=== PATIENT | female | born 1945 | race Caucasian/White ===

== ENCOUNTER → 2017-07-27 | Day surgery (SDC) | payer MEDICARE ==
[~2017-07-27] VITALS: Ht 162.6 cm; Wt 60.0 kg
[~2017-07-27] MED LIST: CHOL10008 PO; Ketamine 10 mg/mL 20 mL Inj ONE; Lactated Ringer's 1,000 ML IV ONE; Lactated Ringer's 1,000 ML IV SCH; MetoCLOpramide 5 mg/mL 2 mL Inj IVPUSH PRN; OMEP20CA11 PO; Ondansetron 2 mg/mL 2 mL Inj IVPUSH PRN; TRIA1CAP5 PO
--- NOTE | 2017-07-27 07:29 | PCM.HPANE ---
Patient Data Surgeon Admitting Provider: Attending Provider:Miguel Soto MD Primary Care Physician:Olive Olson MD Other Provider:[facility] Reason for Visit Colon Cancer Screening, Abdominal Pain Ht/WT & BMI Body Mass Index Allergies Coded Allergies: Morpholine Analogues (Verified Allergy, Unknown, 07/27/17) Past Anesthesia History Anesthesia History: Denies:: Abnormal Airway, Difficult Intubation Diabetes History Hx Diabetes?: No MRSA MRSA: No Medications Hypertension Medication: Yes Home Meds Incl Beta Maida: No Reported Medications Cholecalciferol (Vitamin D3) (Vitamin D3)1,000 Unit Tab.chew1,000 Unit PO DAILY 07/25/17 Triamterene/HCTZ 37.5-25 mg 1 Each Capsule1 Capsule PO DAILY Ref 0 07/25/17 Omeprazole 20 Mg Capsule.dr20 Mg PO DAILY Ref 0 07/25/17 History History of ENT Problems?: No HEENT History: Denies:: Abnormal Airway Cataracts Difficult Intubation Dysphagia Glaucoma Hearing Problem Sinus Problem TMJ Denture Type: None Teeth Condition: Within Normal Limits Hx of Heart Problems?: Yes Cardiovascular History: Positive for:: Hypertension Hx of Respiratory Problem?: No Respiratory History: Denies:: Asthma COPD Chest Surgery Cough Dyspnea Emphysema Hemoptysis Oxygen Administration Pneumonia Pulmonary Embolism Tuberculosis Use of C-PAP Machine Use of Inhalers / NEBS Hx Neurologic Problems?: No Neurological History: Denies:: Alzheimer's Disease CVA Dementia Dizziness Headaches Multiple Sclerosis Parkinson's Disease Peripheral Neuropathy Seizures TIA Hx of GI Problems?: Yes (abdominal pain) Gastrointestinal History: Denies:: Cirrhosis Diverticulitis Gall Bladder Disease Gastroesphageal Reflux Gastrointestinal Bleeding Heartburn Hepatitis Hiatal Hernia Liver Disease Rectal Bleeding Hx of Problems?: No HX of Peritoneal Dialysis: No Female Hx: Denies:: Currently Skin History: Denies:: History Skin Disorders? Pressure Ulcers Hx Musculoskeletal Problems?: No Hx of Psycho/Social Problems?: Yes Psycho Social History: Positive for:: Anxiety Hx Depression Hx Surgeries?: No Hx Any Other Health Problems?: No Stop/Bang Treated for Sleep Apnea?: No Do You Have a CPAP Machine?: No FRANSISCO Risk Assessment: Low Risk, <3 Yes Risk Assessment Category Category 1A: Patient has history of documented sleep apnea, and HAS NOT received any narcotic, sedative or anesthesia administration during this stay. Category 1B: Patient has history of documented sleep apnea, and HAS received any narcotic , sedative or anesthesia administration during this stay Category 2: Patient has SUSPECTED Obstructive Sleep Apnea, and HAS received any narcotic , sedative or anesthesia administration during this stay. Category 3: Patient has SUSPECTED Obstructive Sleep Apnea and HAS NOT received narcotic, sedative or anesthesia administration during this stay. Category 4: Outpatient in Procedural Areas with known sleep apnea or who screen positive for High Risk via the STOP/BANG questionnaire. Exam Exam General Appearance: Alert, Oriented X3, Cooperative, No Acute Distress HEENT/AIRWAY: MP 2 Lungs: Clear to Auscultation, Normal Air Movement Heart: Exam Unremarkable, Regular Rate/Rhythm, No Murmurs/Rubs/Gallops Plan Impression Patient chart reviewed, patient interviewed and anesthestic plan with risks, benefits, and alternatives discussed, and informed consent obtained. ASA Physical Status: ASA2 Mod Systemic Disease Anesthetic Plan: MAC Bene/Risks/Altern/Consents: Yes HP Complete Prior to Induction: Yes Jimmy Clarke MD Jul 27, 2017 07:29
[2017-07-27 14:12] VITALS: BP 156/90; PULSE 62; RESP 16; O2SAT 99
--- NOTE | 2017-07-27 15:07 | PCM.ENDEGD ---
EGD Date of Service: Jul 27, 2017 Physician Miguel Soto MD Pre Procedure Diagnosis: History of melena and abdominal pain Post Procedure Dx & Findings: Fundic polyps Procedure Esophagogastroduodenoscopy PROCEDURE IN DETAIL: Sedation given by anesthesiology After proper sedation, Olympus video endoscope was inserted into patient's mouth and esophagus was successfully intubated. Scope introduced esophagus. Esophagus showed normal shiny whitish mucosa consistent with squamous cell component. Z line was intact at 40 cm from the incisors. The further advanced to the stomach. Stomach showed normal shiny mucosa with normal appearing rugae folds without any ulcer mass erosion. Cardia fundus body antrum pylorus were all visualized. Retroflexion was done. Multiple fundic polyps noted almost all exclusively in the fundus and proximal body of the stomach. Largest about 1 -1/2 cm in size. Sampling biopsies obtained. Stomach was easily inflated and deflatable using air. Scope further advanced to the distal duodenum. Duodenum revealed normal villous structures with normal appearing folds without any mass ulcer erosion. 5 biopsies obtained for celiac disease for abdominal pain workup. Impression Fundic polyps Recommendation Avoid biopsies Presedation Assessment Risks and Benefits Informed consent was obtained from the patient after all risks and benefits including but not limited to drug reaction, infection, pain, bleeding, perforation, as well as alternatives were discussed. Patient monitoring Continuous pulse oximetry, cardiac monitoring, blood pressure monitoring, IV access, and oxygen at 2L per nasal cannula. Complications There were no periprocedural complications identified. Post Procedure Plan Post Procedure Recommendations 1. Restrict activities today. 2. Resume normal activities in the morning. 3. Resume medications. 4. GERD behavioral modification: - Avoid fatty, acidic, spicy, large meals - Do not lie down after meals - Do not eat or drink anything for at least 2 1/2 hours before going to bed at night - Discontinue tobacco and alcohol - Decrease or avoid caffeine - Avoid chocolate and mints - Decrease weight - Avoid aspirin and non steroidal anti-inflammatory agents (NSAID) such as Aleve, Advil, Mobic, Naproxen, Ibuprofen, etc 5. Add proton pump inhibitor. Take 30 minutes before 1st meal of the day. 6. Patient informed of normal post procedure side effects as bloating, drowsiness, blood streaking in the stool 7. If gastric biopsy reveal H.pylori, continue with appropriate treatment 8. If small bowel biopsy reveals celiac, continue with appropriate treatment 9. Please don't hesitate to call me with any questions Miguel Soto MD Jul 27, 2017 15:07
--- NOTE | 2017-07-27 15:38 | PCM.ENDCOL ---
Colonoscopy Date of Service: Jul 27, 2017 Physician Miguel Soto MD Pre Procedure Diagnosis: screening Post Procedure Dx & Findings: Polyp hemorrhoids Procedure Colonoscopy PROCEDURE IN DETAIL: Sedation done by anesthesiology Prep adequate Withdrawal time 13 minutes After unremarkable rectal examination the Olympus video colonoscope was inserted patient's anal canal and was advanced to cecum. Landmarks were identified including the ileocecal valve and appendiceal orifice. Scope was withdrawn systematically. Visualized colonic mucosa showed healthy shiny mucosa with normal healthy-appearing vasculature. In the transverse colon there were 2 polyps. Both her about 2-3 mm in size. These are both removed completely using cold snare. In the rectum, there was a 1 mm polyp which was removed completely with cold forceps. In the rectum retroflexion was done which showed hemorrhoids. Anal canal was inspected carefully on the way out and hemorrhoids noted. Impression Polyp 3 status post complete removal Hemorrhoids Recommendation Repeat colonoscopy 3 years Presedation Assessment Risks and Benefits Informed consent was obtained from the patient after all risks and benefits including but not limited to drug reaction, infection, pain, bleeding, perforation, as well as alternatives were discussed. Patient monitoring Continuous pulse oximetry, cardiac monitoring, blood pressure monitoring, IV access, and oxygen at 2L per nasal cannula. Complications There were no periprocedural complications identified. Post Procedure Plan Post Procedure Recommendations 1. Restrict activities today. 2. Resume normal activities in the morning. 3. Resume medications. 4. Patient informed of normal post procedure side effects as bloating, drowsiness, blood streaking in the stool. 5. average risk CRCS. If colon polyps come back as: -Hyperplastic- can repeat colonoscopy in 10 years -Tubular adenoma- repeat colonoscopy in 5 years -Tubulovillous/villous adenoma- repeat colonoscopy in 3 years -If any dysplasia- return to clinic as soon as possible 6. Please don't hesitate to call me with any questions. Miguel Soto MD Jul 27, 2017 15:38
[2017-07-27 15:40] VITALS: BP 122/79; PULSE 64; RESP 16; O2SAT 98
[2017-07-27 15:50] VITALS: BP 135/81; PULSE 62; RESP 16; O2SAT 100
[2017-07-27 16:00] VITALS: BP 147/109; PULSE 55; RESP 16; O2SAT 99
[2017-07-27 16:10] VITALS: BP 160/83; PULSE 56; RESP 16; O2SAT 99
--- NOTE | 2017-07-31 08:05 | PCM.ANEP1 ---
Post Anesthesia PACU Phase 1 Assessment Anesthetic Administered: MAC Level of Alertness: Awake, talking LEE's with Equal Strength: Yes Pain: No Nausea or Vomiting: No CV Function & Hydration Stable: Yes Airway Device: none Lungs: Clear to Auscultation, Normal Air Movement Dermatome Level: Full Sensation PACU Phase 2 Assessment Complications: No Follow up Care: No Patient Instructions Provided: N/A Jimmy Clarke MD Jul 31, 2017 08:05
--- NOTE | 2017-08-01 17:11 | PATH ---
SURGICAL PATHOLOGY Attending Physician:Miguel Soto M.D. CASE STATUS: Signed Out PATIENT NAME: ROD MORALES PID: [id number] : 1945 DATE COLLECTED:07/27/2017 00:00 SPECIMEN: 1: Stomach, Polyp, Biopsy 2: Duodenum, Biopsy 3: Colon, Polyp 4: Rectum, Biopsy CLINICAL HISTORY: ABDOMINAL PAIN, GASTRIC POLYP 1). GASTRIC POLYPS BIOPSY 2). DUODENAL BIOPSY, RULE OUT CELIAC 3). TRANSVERSE COLON POLYP 4). RECTAL POLYP X1 FINAL DIAGNOSIS: 1. Gastric Polyps, Biopsies: Fundic gland polyp x2. Negative for intestinal metaplasia, dysplasia or malignancy. 2. Duodenum, Biopsy: Duodenal mucosa with no diagnostic abnormality. Negative for active inflammation, features of sprue, dysplasia or malignancy. 3. Transverse Colon Polyps, Polypectomies: Tubular adenoma (five of seven pieces). 4. Rectal Polyp, Biopsy: Hyperplastic polyp. ICD10: R10.9 D12.3 GROSS DESCRIPTION: The specimen is received in four formalin filled containers labeled with the patient's name. 1). The specimen is labeled "gastric polyps" and consists of 2 tiny portions of tissue which aggregate to 0.1 x 0.1 x 0.1 CM. The specimen is entirely submitted in cassette 1A. 2). The specimen is labeled "duodenal" and consists of 3 portions of tissue which aggregate to 0.2 x 0.2 x 0.2 CM. The specimen is entirely submitted in cassette 2A. 3). The specimen is labeled "transverse colon polyp" and consists of multiple portions of tissue which aggregate to zero 3 x 0.3 x 0.2 CM. The specimen is entirely submitted in cassette 3A. 4). The specimen is labeled "rectal polyp" and consists of a 0.3 x 0.2 x 0.2 CM portion of tissue which is entirely submitted in cassette 4A. 07/29/2017DC ICD-9 CODES: CPT CODES: 1: 95854 2: 04284 3: 95632 4: 94233 Electronically Signed Out Tashi Hermosillo MD, Ph.D. [facility] Pathology [facility] [address] [place] [address], [place] [address] Technical component performed at [facility], [facility] [address], [place], [address]
== END | disposition home or self-care (01) ==
LOC: END 01:15
PROVIDERS: ATTEND Internal Medicine
DX: Z12.11 Encounter for screening for malignant neoplasm of colon (principal); D12.3 Benign neoplasm of transverse colon; K62.1 Rectal polyp; K64.8 Other hemorrhoids; K31.7 Polyp of stomach and duodenum; K21.9 Gastro-esophageal reflux disease without esophagitis
CPT/HCPCS: 43239; 45385; J7120